=== PATIENT | male | born 1960 | race Caucasian/White ===

== ENCOUNTER 2024-02-07 16:10 | Inpatient (IN) | payer BC, MEDICAID ==
[~2024-02-07] VITALS: Ht 185.4 cm; Wt 98.9 kg
[2024-02-07 16:10] VITALS: BP_SYST 99; PULSE 112; RESP 16; TEMP 98; O2SAT 90
[2024-02-07 16:44] LABS: BLOOD GAS BASE EXCESS 5.2 mmol/L (-3.0-3.0); BLOOD GAS HCO3 33.1 mmol/L (21.0-27.0); BLOOD GAS PH 7.343 (7.350-7.450)
[2024-02-07 17:01] LABS: PROTHROMBIN TIME 10.7 SECS (9.5-12.5)
[2024-02-07] MEDS ORDERED: LEVO150C4 PO (17:03)
[2024-02-07] MEDS ORDERED: TRAZ50TA54 PO (17:03)
[2024-02-07] MEDS ORDERED: FLUT1BLS12 INH (17:03)
[2024-02-07] MEDS ORDERED: DIAZ10TA4 PO (17:03)
[2024-02-07] MEDS ORDERED: EPLE25TA10 PO (17:03)
[2024-02-07] MEDS ORDERED: FLUT1BLS5 INH (17:03)
[2024-02-07] MEDS ORDERED: PROP80CA58 PO (17:03)
[2024-02-07] MEDS ORDERED: NORT50CA PO (17:03)
[2024-02-07] MEDS ORDERED: FERR256T (17:03)
[2024-02-07] MEDS ORDERED: ROSU5TAB13 PO (17:03)
[2024-02-07] MEDS ORDERED: ALBMDI INH (17:03)
[2024-02-07] MEDS ORDERED: BUPR1TAB45 (17:03)
[2024-02-07] MEDS ORDERED: FAMO-268 PO (17:03)
[2024-02-07] MEDS ORDERED: GABA-331 (17:03)
[2024-02-07 17:06] LABS: BASOPHILS % (AUTO) 0.3 % (0.0-2.0); EOSINOPHILS # (AUTO) 0.2 K/uL (0.0-0.4); EOSINOPHILS % (AUTO) 1.8 % (0.0-4.0); HEMATOCRIT 37.7 % (36-54); HEMOGLOBIN 12.4 g/dL (14.0-18.0); LYMPHOCYTES # (AUTO) 1.1 K/uL (1.0-5.5); LYMPHOCYTES % (AUTO) 8.8 % (20.5-51.5); MEAN CORPUSCULAR HEMOGLOBIN 33 pg (27-31); MEAN CORPUSCULAR HGB CONC 33 % (32-36); MEAN CORPUSCULAR VOLUME 100 fL (79.0-98.0); MONOCYTES # (AUTO) 1.1 K/uL (0.0-1.0); MONOCYTES % (AUTO) 8.6 % (1.7-9.3); NEUTROPHILS # (AUTO) 10.2 K/uL (1.8-7.7); NEUTROPHILS % (AUTO) 80.5 % (40.0-70.0); PLATELET COUNT (AUTO) 127 K/uL (130-430); RED BLOOD CELL COUNT(AUTO) 3.78 MIL/uL (4.2-6.2); RED CELL DISTRIBUTION WIDTH 14.1 % (9.0-15.0); WHITE BLOOD COUNT (AUTO) 12.7 K/uL (4.8-10.8)
[2024-02-07 17:16] LABS: ALBUMIN 3.1 g/dL (3.4-4.8); ANION GAP 5 (5-15); ASPARTATE AMINOTRANSFERASE 20 U/L (10-37); CALCIUM 8.3 mg/dL (8.4-11.0); CARBON DIOXIDE 35 mmol/L (23-29); CHLORIDE 101 mmol/L (98-107); CREATININE 1.48 mg/dL (0.55-1.30); GFR AFRICAN AMERICAN 61 mL/min (>90); GLUCOSE 108 mg/dL (74-106); POTASSIUM 4.3 mmol/L (3.5-5.1); SODIUM SERUM 141 mmol/L (136-145); TOTAL BILIRUBIN 0.3 mg/dL (0.0-1.0); TOTAL PROTEIN, SERUM 6.3 g/dL (6.4-8.3); UREA NITROGEN, BLOOD 19 mg/dL (8-21)
[2024-02-07 17:17] LABS: GFR NON AFRICAN-AMERICAN 51 mL/min (>90)
[2024-02-07 17:26] LABS: BLOOD GAS PCO2 62.3 mmHg (32.0-45.0); BLOOD GAS PO2 48.7 mmHg (75.0-100.0)
[2024-02-07 17:27] LABS: ABG O2 SAT% ESTIMATE 81.1 % (94.0-100.0)
[2024-02-07] MEDS ORDERED: NALOXONE HCL 2 MG/2 ML SYR ONE (17:43)
[2024-02-07 17:50] LABS: BILIRUBIN,URINE 1+ (NEGATIVE); BLOOD, URINE NEGATIVE (NEGATIVE); CLARITY/URINE CLEAR (CLEAR); COLOR,URINE YELLOW (YELLOW); GLUCOSE,URINE NEGATIVE (NEGATIVE); KETONES,URINE NEGATIVE (NEGATIVE); LEUKOCYTE ESTERASE ,URINE NEGATIVE (NEGATIVE); NITRITE, URINE NEGATIVE (NEGATIVE); PROTEIN URINE NEGATIVE (NEGATIVE); UROBILINOGEN,URINE 0.2 (0.2-1.0)
[2024-02-07] MEDS: NALOXONE HCL 2 MG/2 ML SYR IVP ONE (18:11)
[2024-02-07 18:18] LABS: BARBITURATE, URINE NEGATIVE (NEG <=200)
[2024-02-07 18:19] LABS: BENZODIAZEPINE, URINE POSITIVE (NEG <=150); CANNABINOID, URINE NEGATIVE (NEG <=50); COCAINE, URINE NEGATIVE (NEG <=150); METHAMPHETAMINES SCREEN,URINE NEGATIVE (NEG <=500); OPIATE, URINE NEGATIVE (NEG <=100); PHENCYCLIDINE SCREEN,URINE NEGATIVE (NEG <=25); UR TRICYCLIC ANTIDEPRESSANTS POSITIVE (NEG <=300); URINE AMPHETAMINE NEGATIVE (NEG <=500); URINE METHADONE NEGATIVE (NEG <=200); URINE OXYCODONE SCREEN NEGATIVE (NEG <=100)
[2024-02-07 18:25] LABS: ALANINE AMINOTRANSFERASE 26 U/L (12-78); BILIRUBIN,DIRECT 0.1 mg/dL (0.0-0.3)
[2024-02-07 18:26] LABS: ACETAMINOPHEN < 1 ug/mL (1-30); ALCOHOL, BLOOD < 3 mg/dL (<10); SALICYLATE 2 mg/dL (3-30)
[2024-02-07 18:30] LABS: ACETONE, SERUM NEGATIVE (NEGATIVE)
[2024-02-07 18:48] LABS: CREATINE KINASE, TOTAL 81 U/L (39-308)
[2024-02-07 18:49] LABS: BACTERIA,URINE None Seen /HPF (None Seen); HYALINE CASTS, URINE 0-10 /LPF (None Seen); MUCUS,URINE 3+ /LPF (None Seen); RBC,URINE 0-3 /HPF (0-3); WBC,URINE 0-3 /HPF (0-3)
[2024-02-07] MEDS ORDERED: PIPERACILLIN/TAZO 4.5GM/DEX-IS 100 ML IV SCH (19:00)
[2024-02-07] MEDS: ASPIRIN 81 MG TABLET(ECOTRIN) PO ONE (19:39)
[2024-02-07] MEDS: NACL 0.9% 1,000 ML IV ONE (19:39)
[2024-02-07] MEDS ORDERED: PIPERACILLIN/TAZOBACTAM 4.5 GM/VIAL (ZOSYN) IV ONE (20:29)
[2024-02-07] MEDS: PIPERACILLIN/TAZO 4.5GM/DEX-IS 100 ML IV ONE (20:34)
[2024-02-07] MEDS: IPRATROPIUM/ALBUTEROL SULFATE 3 ML AMPUL.NEB (DUONEB) INH ONE (20:58)
[2024-02-07] MEDS ORDERED: VANCOMYCIN HCL 1000 MG/VIAL IV ONE (21:26)
[2024-02-07] MEDS: VANCOMYCIN HCL 1,000 MG in NS 250 ML IV ONE (21:32)
[2024-02-07 21:57] VITALS: BP_SYST 122; PULSE 96; O2SAT 92
[2024-02-07] MEDS ORDERED: HYDROcodone/ACETAMIN 5-325 MG TAB (NORCO/ VICODIN) PO PRN (22:00)
[2024-02-07] MEDS ORDERED: NALOXONE HCL 0.4 MG/ML AMP (NARCAN) IVP PRN ×2 (22:00)
[2024-02-07] MEDS: NORMAL SALINE 5 ML DISP.SYRIN IVF SCH (23:03)
[2024-02-08] VITALS (7 sets, daily range): BP systolic 103–134; PULSE 64–81; RESP 16–20; TEMP 97.6–98.7; O2SAT 94–98
[2024-02-08] MEDS: ONDANSETRON HCL 4 MG/2 ML VIAL IVP PRN (03:28)
[2024-02-08] MEDS: LORazepam 2 MG/ML VIAL IVP PRN (04:01)
[2024-02-08 04:23] LABS: BASOPHILS % (AUTO) 0.4 % (0.0-2.0); EOSINOPHILS # (AUTO) 0.2 K/uL (0.0-0.4); EOSINOPHILS % (AUTO) 2.5 % (0.0-4.0); HEMATOCRIT 37.2 % (36-54); HEMOGLOBIN 12.2 g/dL (14.0-18.0); LYMPHOCYTES # (AUTO) 0.9 K/uL (1.0-5.5); LYMPHOCYTES % (AUTO) 10.5 % (20.5-51.5); MEAN CORPUSCULAR HEMOGLOBIN 33 pg (27-31); MEAN CORPUSCULAR HGB CONC 33 % (32-36); MEAN CORPUSCULAR VOLUME 100 fL (79.0-98.0); MONOCYTES # (AUTO) 0.7 K/uL (0.0-1.0); NEUTROPHILS # (AUTO) 7.1 K/uL (1.8-7.7); NEUTROPHILS % (AUTO) 78.6 % (40.0-70.0); PLATELET COUNT (AUTO) 110 K/uL (130-430); RED BLOOD CELL COUNT(AUTO) 3.71 MIL/uL (4.2-6.2); RED CELL DISTRIBUTION WIDTH 14.2 % (9.0-15.0)
[2024-02-08 04:55] LABS: CALCIUM 7.9 mg/dL (8.4-11.0); CREATININE 0.93 mg/dL (0.55-1.30); POTASSIUM 4.2 mmol/L (3.5-5.1)
[2024-02-08] MEDS: HYDROcodone/ACETAMIN 10-325 MG TAB PO PRN (05:00)
[2024-02-08] MEDS ORDERED: ONDANSETRON HCL 4 MG/2 ML VIAL IVP PRN (10:00)
[2024-02-08] MEDS: PIPERACILLIN/TAZO 3.375 GM in D5W 50 ML IV SCH (11:47)
[2024-02-08] MEDS: LEVOTHYROXINE SODIUM 0.15 MG TABLET PO ONE (11:55)
[2024-02-08] MEDS: PROPRANOLOL HCL 80 MG (INDERAL LA 80MG) PO ONE (11:55)
[2024-02-08] MEDS: FAMOTIDINE 20 MG TABLET PO ONE (11:55)
[2024-02-08] MEDS: DIAZEPAM 5 MG TABLET (VALIUM) PO PRN (14:14)
[2024-02-08] MEDS ORDERED: BUPRENORPHINE HCL/NALOXONE HCL 2-0.5 MG 1 EACH TAB.SUBL SL SCH (15:00)
[2024-02-08] MEDS: GABAPENTIN 300 MG CAPSULE PO SCH (15:00)
[2024-02-08] MEDS: ACETAMINOPHEN 325 MG TABLET PO PRN (16:51)
[2024-02-08] MEDS: ALBUTEROL SULFATE 0.083% 2.5 MG/3 ML VIAL.NEB INH SCH (20:08)
[2024-02-08] MEDS: BUDESONIDE 0.5 MG/2 ML AMPUL.NEB INH SCH (20:10)
[2024-02-08] MEDS: BUPRENORPHINE PO SCH (21:16)
[2024-02-08] MEDS: [UNRECOGNIZED DRUG - OTHER] PO SCH (21:16)
[2024-02-08] MEDS: NORTRIPTYLINE HCL 25 MG CAPSULE PO SCH (21:17)
[2024-02-08] MEDS: ATORVASTATIN 20 MG TABLET PO SCH (21:17)
[2024-02-08] MEDS: traZODone HCL 50 MG TABLET (DESYREL) PO PRN (21:18)
[2024-02-09] VITALS (7 sets, daily range): BP systolic 122–134; PULSE 68–79; RESP 18–20; TEMP 97.2–99.1; O2SAT 92–95
[2024-02-09 05:42] LABS: BASOPHILS % (AUTO) 0.3 % (0.0-2.0); EOSINOPHILS # (AUTO) 0.3 K/uL (0.0-0.4); EOSINOPHILS % (AUTO) 3.7 % (0.0-4.0); HEMATOCRIT 36.1 % (36-54); HEMOGLOBIN 12.2 g/dL (14.0-18.0); LYMPHOCYTES # (AUTO) 1.1 K/uL (1.0-5.5); MEAN CORPUSCULAR HEMOGLOBIN 33 pg (27-31); MEAN CORPUSCULAR HGB CONC 34 % (32-36); MEAN CORPUSCULAR VOLUME 99 fL (79.0-98.0); MONOCYTES # (AUTO) 0.7 K/uL (0.0-1.0); MONOCYTES % (AUTO) 7.8 % (1.7-9.3); NEUTROPHILS # (AUTO) 6.8 K/uL (1.8-7.7); NEUTROPHILS % (AUTO) 76.2 % (40.0-70.0); PLATELET COUNT (AUTO) 113 K/uL (130-430); RED BLOOD CELL COUNT(AUTO) 3.65 MIL/uL (4.2-6.2); RED CELL DISTRIBUTION WIDTH 13.5 % (9.0-15.0); WHITE BLOOD COUNT (AUTO) 8.9 K/uL (4.8-10.8)
[2024-02-09 06:02] LABS: ALBUMIN 2.8 g/dL (3.4-4.8); CALCIUM 8.6 mg/dL (8.4-11.0); CREATININE 0.9 mg/dL (0.55-1.30); POTASSIUM 3.8 mmol/L (3.5-5.1); TOTAL BILIRUBIN 0.5 mg/dL (0.0-1.0); TOTAL PROTEIN, SERUM 5.9 g/dL (6.4-8.3)
[2024-02-09] MEDS: FAMOTIDINE 20 MG TABLET PO SCH (08:29)
[2024-02-09] MEDS: LEVOTHYROXINE SODIUM 0.15 MG TABLET PO SCH (08:29)
[2024-02-09] MEDS: PROPRANOLOL HCL 80 MG (INDERAL LA 80MG) PO SCH (08:30)
[2024-02-09 17:16] LABS: ABG O2 SAT% ESTIMATE 90.9 % (94.0-100.0); BLOOD GAS HCO3 32.7 mmol/L (21.0-27.0); BLOOD GAS PO2 61.3 mmHg (75.0-100.0)
[2024-02-09 17:20] LABS: ALLEN'S TEST POSITIVE (P); BLOOD GAS PCO2 55.2 mmHg (32.0-45.0)
[2024-02-09] MEDS: METHYLPREDNISOLONE SOD SUCC 40 MG/ML VIAL IVP ONE (17:33)
[2024-02-09] MEDS: ALBUTEROL SULFATE 0.083% 2.5 MG/3 ML VIAL.NEB INH SCH (21:02)
[2024-02-09] MEDS: BUDESONIDE 0.5 MG/2 ML AMPUL.NEB INH SCH (21:02)
[2024-02-09] MEDS: METHYLPREDNISOLONE SOD SUCC 40 MG/ML VIAL IVP SCH (21:34)
[2024-02-10] VITALS (8 sets, daily range): BP systolic 104–123; PULSE 65–71; RESP 18–21; TEMP 96.9–98; O2SAT 91–97
[2024-02-10 05:09] LABS: BASOPHILS % (AUTO) 0.2 % (0.0-2.0); EOSINOPHILS % (AUTO) 0.1 % (0.0-4.0); HEMATOCRIT 38.4 % (36-54); HEMOGLOBIN 12.8 g/dL (14.0-18.0); LYMPHOCYTES # (AUTO) 0.5 K/uL (1.0-5.5); LYMPHOCYTES % (AUTO) 6.6 % (20.5-51.5); MEAN CORPUSCULAR HEMOGLOBIN 33 pg (27-31); MEAN CORPUSCULAR HGB CONC 33 % (32-36); MEAN CORPUSCULAR VOLUME 99 fL (79.0-98.0); MONOCYTES # (AUTO) 0.2 K/uL (0.0-1.0); MONOCYTES % (AUTO) 2.4 % (1.7-9.3); NEUTROPHILS # (AUTO) 6.2 K/uL (1.8-7.7); NEUTROPHILS % (AUTO) 90.7 % (40.0-70.0); PLATELET COUNT (AUTO) 128 K/uL (130-430); RED BLOOD CELL COUNT(AUTO) 3.89 MIL/uL (4.2-6.2); RED CELL DISTRIBUTION WIDTH 13.6 % (9.0-15.0); WHITE BLOOD COUNT (AUTO) 6.9 K/uL (4.8-10.8)
[2024-02-10 05:19] LABS: ERYTHROCYTE SEDIMENTATION RATE 29 MM/HR (0-15)
[2024-02-10 05:45] LABS: CALCIUM 8.3 mg/dL (8.4-11.0); CREATININE 0.91 mg/dL (0.55-1.30); POTASSIUM 4.7 mmol/L (3.5-5.1)
[2024-02-10] MEDS: FERROUS GLUCONATE 324 MG TABLET PO SCH (08:52)
[2024-02-10] MEDS ORDERED: LOSA-413 PO (09:15)
[2024-02-10] MEDS ORDERED: NALOXONE HCL 0.4 MG/ML AMP (NARCAN) IVP PRN ×2 (10:30)
[2024-02-10] MEDS: CALCIUM GLUC 2 GM/100ML-NACL 100 ML IV ONE (11:19)
[2024-02-10] MEDS: HYDROcodone/ACETAMIN 5-325 MG TAB (NORCO/ VICODIN) PO PRN (11:20)
[2024-02-10] MEDS ORDERED: FERR-69 PO (14:14)
[2024-02-10] MEDS ORDERED: OMEP-268 PO (14:14)
[2024-02-10] MEDS ORDERED: GABA-580 PO (14:14)
[2024-02-10] MEDS ORDERED: CYCL10TA25 PO (14:14)
[2024-02-10] MEDS ORDERED: IPRA3AMP9 INH (14:14)
[2024-02-10] MEDS ORDERED: BUPR8TAB4 SL (14:14)
[2024-02-10] MEDS: HYDROcodone/ACETAMIN 10-325 MG TAB PO PRN (16:46)
[2024-02-11] VITALS (8 sets, daily range): BP systolic 105–130; PULSE 61–76; RESP 16–19; TEMP 96.9–98.3; O2SAT 95–100
[2024-02-11 05:16] LABS: ALBUMIN 2.7 g/dL (3.4-4.8); CALCIUM 8.4 mg/dL (8.4-11.0); CREATININE 1.01 mg/dL (0.55-1.30); POTASSIUM 4.3 mmol/L (3.5-5.1); TOTAL BILIRUBIN 0.3 mg/dL (0.0-1.0); TOTAL PROTEIN, SERUM 6.2 g/dL (6.4-8.3)
[2024-02-11 05:21] LABS: BASOPHILS % (AUTO) 0.1 % (0.0-2.0); HEMATOCRIT 35.9 % (36-54); HEMOGLOBIN 12.1 g/dL (14.0-18.0); LYMPHOCYTES # (AUTO) 0.7 K/uL (1.0-5.5); LYMPHOCYTES % (AUTO) 6.3 % (20.5-51.5); MEAN CORPUSCULAR HEMOGLOBIN 33 pg (27-31); MEAN CORPUSCULAR HGB CONC 34 % (32-36); MEAN CORPUSCULAR VOLUME 98 fL (79.0-98.0); MONOCYTES # (AUTO) 0.4 K/uL (0.0-1.0); MONOCYTES % (AUTO) 3.7 % (1.7-9.3); NEUTROPHILS # (AUTO) 9.5 K/uL (1.8-7.7); NEUTROPHILS % (AUTO) 89.9 % (40.0-70.0); PLATELET COUNT (AUTO) 137 K/uL (130-430); RED BLOOD CELL COUNT(AUTO) 3.69 MIL/uL (4.2-6.2); RED CELL DISTRIBUTION WIDTH 13.8 % (9.0-15.0); WHITE BLOOD COUNT (AUTO) 10.6 K/uL (4.8-10.8)
[2024-02-11 06:09] LABS: ERYTHROCYTE SEDIMENTATION RATE 12 MM/HR (0-15)
[2024-02-11 11:07] LABS: QUANTIFERON TB GOLD Negative (Negative)
[2024-02-11] MEDS: LOSARTAN POTASSIUM 25 MG TABLET PO ONE (11:30)
[2024-02-11] MEDS: FUROSEMIDE 20 MG/2 ML VIAL IVP ONE (14:01)
[2024-02-11] MEDS: IPRATROPIUM/ALBUTEROL SULFATE 3 ML AMPUL.NEB (DUONEB) INH PRN (19:58)
[2024-02-11] MEDS: METHYLPREDNISOLONE SOD SUCC 40 MG/ML VIAL IVP SCH (21:51)
[2024-02-12] VITALS (7 sets, daily range): BP systolic 123–137; PULSE 57–78; RESP 16–18; TEMP 97.2–98.3; O2SAT 94–98
[2024-02-12 05:46] LABS: HEMATOCRIT 37.7 % (36-54); HEMOGLOBIN 12.7 g/dL (14.0-18.0); LYMPHOCYTES # (AUTO) 0.7 K/uL (1.0-5.5); LYMPHOCYTES % (AUTO) 6.8 % (20.5-51.5); MEAN CORPUSCULAR HEMOGLOBIN 33 pg (27-31); MEAN CORPUSCULAR HGB CONC 34 % (32-36); MEAN CORPUSCULAR VOLUME 99 fL (79.0-98.0); MONOCYTES # (AUTO) 0.5 K/uL (0.0-1.0); MONOCYTES % (AUTO) 4.9 % (1.7-9.3); NEUTROPHILS # (AUTO) 8.9 K/uL (1.8-7.7); NEUTROPHILS % (AUTO) 88.3 % (40.0-70.0); PLATELET COUNT (AUTO) 154 K/uL (130-430); RED CELL DISTRIBUTION WIDTH 13.5 % (9.0-15.0); WHITE BLOOD COUNT (AUTO) 10.1 K/uL (4.8-10.8)
[2024-02-12 05:54] LABS: CALCIUM 8.6 mg/dL (8.4-11.0); CREATININE 0.98 mg/dL (0.55-1.30); POTASSIUM 4.5 mmol/L (3.5-5.1)
[2024-02-12 06:05] LABS: ERYTHROCYTE SEDIMENTATION RATE 13 MM/HR (0-15)
[2024-02-12] MEDS: LOSARTAN POTASSIUM 25 MG TABLET PO SCH (09:02)
[2024-02-12] MEDS ORDERED: DOXY100T2 PO (10:18)
[2024-02-12] MEDS ORDERED: PRED20TA PO (10:18)
[2024-02-12] MEDS: METHYLPREDNISOLONE SOD SUCC 40 MG/ML VIAL IVP SCH (21:09)
[2024-02-13] VITALS (8 sets, daily range): BP systolic 116–147; PULSE 60–75; RESP 16–19; TEMP 96.3–98.4; O2SAT 93–99
[2024-02-13 06:57] LABS: BASOPHILS % (AUTO) 0.1 % (0.0-2.0); HEMATOCRIT 37.7 % (36-54); HEMOGLOBIN 12.6 g/dL (14.0-18.0); LYMPHOCYTES # (AUTO) 0.8 K/uL (1.0-5.5); LYMPHOCYTES % (AUTO) 8.3 % (20.5-51.5); MEAN CORPUSCULAR HEMOGLOBIN 33 pg (27-31); MEAN CORPUSCULAR HGB CONC 34 % (32-36); MEAN CORPUSCULAR VOLUME 99 fL (79.0-98.0); MONOCYTES # (AUTO) 0.8 K/uL (0.0-1.0); MONOCYTES % (AUTO) 7.9 % (1.7-9.3); NEUTROPHILS # (AUTO) 8.2 K/uL (1.8-7.7); NEUTROPHILS % (AUTO) 83.7 % (40.0-70.0); PLATELET COUNT (AUTO) 142 K/uL (130-430); RED CELL DISTRIBUTION WIDTH 14.3 % (9.0-15.0); WHITE BLOOD COUNT (AUTO) 9.8 K/uL (4.8-10.8)
[2024-02-13 07:04] LABS: CALCIUM 8.9 mg/dL (8.4-11.0); CREATININE 0.92 mg/dL (0.55-1.30); POTASSIUM 4.4 mmol/L (3.5-5.1)
[2024-02-13 07:44] LABS: ERYTHROCYTE SEDIMENTATION RATE 14 MM/HR (0-15)
[2024-02-13 13:06] LABS: COCCIDIOIDES AB IGG 0.4 IV (<=0.9); COCCIDIOIDES AB IGM 0.3 IV (<=0.9)
[2024-02-13] MEDS: NICOTINE 21 MG/24 HR PATCH.TD24 TD ONE (17:36)
[2024-02-14] VITALS (8 sets, daily range): BP systolic 133–155; PULSE 53–69; RESP 15–20; TEMP 96.7–98.6; O2SAT 93–97
[2024-02-14 06:07] LABS: EOSINOPHILS % (AUTO) 0.1 % (0.0-4.0); HEMATOCRIT 38.2 % (36-54); HEMOGLOBIN 12.8 g/dL (14.0-18.0); LYMPHOCYTES # (AUTO) 0.8 K/uL (1.0-5.5); LYMPHOCYTES % (AUTO) 8.3 % (20.5-51.5); MEAN CORPUSCULAR HEMOGLOBIN 33 pg (27-31); MEAN CORPUSCULAR HGB CONC 33 % (32-36); MEAN CORPUSCULAR VOLUME 99 fL (79.0-98.0); MONOCYTES # (AUTO) 0.5 K/uL (0.0-1.0); MONOCYTES % (AUTO) 5.4 % (1.7-9.3); NEUTROPHILS # (AUTO) 8.7 K/uL (1.8-7.7); NEUTROPHILS % (AUTO) 86.2 % (40.0-70.0); PLATELET COUNT (AUTO) 157 K/uL (130-430); RED BLOOD CELL COUNT(AUTO) 3.85 MIL/uL (4.2-6.2); RED CELL DISTRIBUTION WIDTH 14.2 % (9.0-15.0); WHITE BLOOD COUNT (AUTO) 10.1 K/uL (4.8-10.8)
[2024-02-14 06:13] LABS: ERYTHROCYTE SEDIMENTATION RATE 12 MM/HR (0-15)
[2024-02-14 06:37] LABS: CALCIUM 8.7 mg/dL (8.4-11.0); CREATININE 1.07 mg/dL (0.55-1.30); POTASSIUM 4.5 mmol/L (3.5-5.1); TOTAL BILIRUBIN 0.2 mg/dL (0.0-1.0); TOTAL PROTEIN, SERUM 6.3 g/dL (6.4-8.3)
[2024-02-14] MEDS: NICOTINE 21 MG/24 HR PATCH.TD24 TD SCH (09:52)
[2024-02-14 21:06] LABS: MYCOPLASMA PNEUMONIAE IgM <770 U/mL (0-769)
[2024-02-15] MEDS ORDERED: predniSONE 10 MG TABLET PO SCH (09:00)
== END 2024-02-14 17:40 | disposition home or self-care (01) | DRG 871 ==
LOC: SED 16:10 → STU 20:58 → SMU 02-12 17:33
PROVIDERS: ADMIT Preventive Medicine Preventive Medicine/Occupational Environmental Medicine; ATTEND Preventive Medicine Preventive Medicine/Occupational Environmental Medicine
DX: A41.9 Sepsis, unspecified organism (principal); I21.A1 Myocardial infarction type 2; I50.23 Acute on chronic systolic (congestive) heart failure; J69.0 Pneumonitis due to inhalation of food and vomit; J96.01 Acute respiratory failure with hypoxia; J18.9 Pneumonia, unspecified organism; E44.0 Moderate protein-calorie malnutrition; T42.4X1A Poisoning by benzodiazepines, accidental (unintentional), initial encounter; J44.9 Chronic obstructive pulmonary disease, unspecified; I11.0 Hypertensive heart disease with heart failure; F17.200 Nicotine dependence, unspecified, uncomplicated; E88.09 Other disorders of plasma-protein metabolism, not elsewhere classified; E83.42 Hypomagnesemia; E78.5 Hyperlipidemia, unspecified; E03.9 Hypothyroidism, unspecified; D69.6 Thrombocytopenia, unspecified; D64.9 Anemia, unspecified; K21.9 Gastro-esophageal reflux disease without esophagitis; R53.81 Other malaise; R73.9 Hyperglycemia, unspecified; Z86.73 Personal history of transient ischemic attack (TIA), and cerebral infarction without residual deficits; Z68.28 Body mass index [BMI] 28.0-28.9, adult; Z79.899 Other long term (current) drug therapy; Y92.89 Other specified places as the place of occurrence of the external cause
CPT/HCPCS: 36415; 36600; 70450-TC; 71045; 80048; 80053; 80076; 80307; 81000; 81001; 81015; 82009; 82140; 82550; 82803; 83605; 83735; 83880; 84100; 84484; 85025; 85610; 85651; 85730; 86480; 86635; 86738; 87040; 93005; 93306; 94640; 94664; 94760; 97110-GP; 97112-GP; 97116-GP; 97530-GP; 99291; G0378; G0480; G0481; G0482; J0696; J1030; J1940; J2060; J2310; J2405; J2543; J3370; J7050; J7060; J7626